=== PATIENT | female | born 2005 | race Caucasian/White ===

== ENCOUNTER 2025-01-25 19:21 | Emergency (ER) | payer BC, SELFPAY ==
[2025-01-25 19:28] VITALS: BP 128/81
[2025-01-25 20:04] VITALS: BP 136/77
[2025-01-25 20:21] VITALS: BMI 44.8
[2025-01-25 20:36] LABS: Hematocrit 38.6 % (37.0-47.0); Hemoglobin 13.3 g/dL (12.0-16.0); Mean Corp Hgb Conc. 34.5 g/dL (33.0-37.0); Mean Corpuscular Hgb 29.6 pg (27.0-31.0); Mean Corpuscular Volume 85.8 fL (81.0-99.0); Mean Platelet Volume 11.2 fL (7.4-10.4); Platelet Count 173 10^3/uL (130-400); Red Cell Dist. Width 12.8 % (11.5-14.5); White Blood Cell Count 2.8 10^3/uL (4.8-10.8)
[2025-01-25 20:48] LABS: ALT (SGPT) 77 U/L (0-35); AST (SGOT) 50 U/L (14-36); Albumin 4.3 g/dl (3.5-5.0); Alkaline Phosphatase 66 U/L (38-126); Blood Urea Nitrogen 6 mg/dl (7-17); Calcium 9.8 mg/dl (8.4-10.2); Carbon Dioxide 22 mmol/L (22-30); Chloride 108 mmol/L (98-107); Estimated Creatinine Clearance > 125 ml/min; Glucose 77 mg/dl (70-99); Potassium 4.4 mmol/L (3.5-5.1); Sodium 140 mmol/L (135-145); Total Bilirubin 0.6 mg/dl (0.2-1.3); Total Protein 6.8 g/dl (6.3-8.2); eGFR > 60.00
[2025-01-25 21:11] LABS: % Basophils 0.7 % (0-2); % Eosinophils 2.2 % (0-6); % Lymphocytes 48.9 % (20.5-51.1); % Monocytes 8.7 % (1.7-9.3); % Neutrophils 39.5 % (42.2-75.2); Absolute Eosinophils 0.1 10^3/uL (0-0.7); Absolute Lymphocytes 1.4 10^3/uL (1.2-3.4); Absolute Monocytes 0.2 10^3/uL (0.1-0.6); Absolute Neutrophils 1.1 10^3/uL (1.4-6.5); Nucleated Red Blood Cells % 0 %
--- NOTE | 2025-01-25 21:42 | ED.GENMED ---
History of Present Illness
General
Chief Complaint: Abdominal Symptoms
Time Seen by Provider: 01/25/25 19:58
History of Present Illness
History of Present Illness:
19-year-old female presents the emergency department for evaluation of bloody diarrhea for the past 6 days. Reports this to be maroon stool, no bright red bleeding. No bleeding in between bowel movements. Reports generalized abdominal discomfort
but no severe pain. No fevers or chills. Notes that she ate food at her [employer] the day before onset of symptoms. No antibiotics in the past 3 months
Review of Systems
Review of Systems
Allergies reviewed?: Yes
All Other Systems: ROS reviewed and negative except as documented in HPI and ROS
Phy Exam
Physical Exam
Physical Exam:
GEN: Well appearing, NAD, WDWN
HEENT: Oral mucosa moist, no scleral icterus
Cardiac: Regular rate
Lung: No respiratory distress, no tachypnea
Abdomen: Soft, grossly nontender to palpation
MSK: No gross deformity or injuries
Skin: Good color, no pallor or jaundice, no rashes
Neuro: AO x3, moves all extremities freely
Psych: Calm, cooperative
Course
Orders/Labs/Results
Orders:
Orders
01/25/25 20:21
Complete Blood Count/With Diff Urgent
Comprehensive Metabolic Panel Urgent
01/25/25 21:48
Stool Culture Urgent
FERNANDO Source: Feces/Stool
Specimen Description:
Date Specimen was Collected: 01/25/25
Time Specimen was Collected: 21:46
Abnormal Lab Results
01/25/25
20:21
WBC 2.8 L 10^3/uL
(4.8-10.8)
MPV 11.2 H fL
(7.4-10.4)
Absolute Neuts (auto) 1.1 L 10^3/uL
(1.4-6.5)
Neutrophils % 39.5 L %
(42.2-75.2)
Chloride 108 H mmol/L
(98-107)
BUN 6 L mg/dl
(7-17)
AST 50 H U/L
(14-36)
ALT 77 H U/L
(0-35)
01/25/25 20:21
01/25/25 20:21
Vital Signs
Initial and Last Documented VS:
Initial Vital Signs
Pulse Resp BP Pulse Ox
74 16 128/81 98
01/25/25 19:28 01/25/25 19:28 01/25/25 19:28 01/25/25 19:28
Last Documented Vital Signs
Pulse Resp BP Pulse Ox
78 18 136/77 97
01/25/25 21:38 01/25/25 21:38 01/25/25 20:04 01/25/25 21:45
MDM/Problems Addressed
MDM/Problems Addressed:
Given duration of symptoms longer than 5 to 6 days will send stool culture, will withhold antibiotics until culture is resulted given patient's clinical stability and normal vitals
*Critical Care Note
Total Time (30-74mins, 75-104mins- exclusive of procedures): Not Applicable
ED Attending Note
-
Portions of this chart may have been created with voice recognition software.� Occasional wrong word or��sound alike� substitutions may have occurred due to the inherent limitations of voice recognition software.
Discharge Plan
Departure
Patient Disposition: Home (Routine Discharge)
Date of Disposition: 01/25/25
Time of Disposition: 21:42
Patient with high blood pressure during this ER visit?: No
Discharge Problem:
Bloody diarrhea
Instructions: Diarrhea in teens and adults
Prescriptions:
No Action
fluoxetine 20 mg Capsule
30 mg PO DAILY AT 0700
Referrals:
Filips,Rupert., DO [Family Provider] -
Activity Restrictions/Additional Instructions:
We will call with test results in 1-2 days
Interventions
Interventions:
*Risk Screen - Suicide Last Done: 01/25/25 19:28
*General Assessment Last Done: 01/25/25 22:12
*Neglect/Abuse Screening Last Done: 01/25/25 19:28
*ED- Fall Risk Assessment Last Done: 01/25/25 22:12
*ED COVID-19 Vaccine History Last Done: 01/25/25 22:12
*Nursing Disposition Last Done: 01/25/25 22:12
XC-Hoxflp-Uopwudgxqz Assessment Last Done: 01/25/25 21:39
Discharge Date and Time
Discharge Date/Time: 01/25/25 22:13
Print Language: CROATIAN
== END 2025-01-25 22:13 | disposition home or self-care (01) ==
LOC: EMR 19:21
PROVIDERS: Physician Assistant; EMERGENCY PHYSICIAN Emergency Medicine; FAMILY PHYSICIAN Family Medicine
DX: K92.1 Melena (principal); R19.7 Diarrhea, unspecified
CPT/HCPCS: 99283; 80053; 85025; 87045; 87046; 87077; 87427